=== PATIENT | male | born 1975 | race American Indian/Alaskan Native ===

== ENCOUNTER 2020-06-28 17:08 | Outpatient (CLI) | payer OTHER, SELFPAY ==
[2020-06-28 17:34] LABS: Basophils Percent Auto 0.4 % (0.2-1.2); Eosinophils Absolute Auto 0.3 K/mm3 (0-0.3); Eosinophils Percent Auto 3.8 % (0-4.4); Hematocrit 50.5 % (42.0-52.0); Hemoglobin 17.1 g/dL (14.0-18.0); Immature Granulocyte Absolute 0.02 K/mm3 (0.00-0.031); Immature Granulocyte Percent A 0.3 % (0-0.5); Lymphocytes Absolute Auto 2.17 K/mm3 (0.9-3.2); Lymphocytes Percent Auto 29.6 % (18.3-44.2); Mean Corpuscular HGB Conc 33.9 g/dl (32-36); Mean Corpuscular Hemoglobin 29.1 pg (26-34); Mean Platelet Volume 9.5 fl (7.4-10.4); Monocytes Absolute Auto 0.8 K/mm3 (0.1-0.6); Neutrophils Percent Auto 54.9 % (45.5-73.1); Platelet Count Result 271 k/mm3 (150-375); Red Blood Count 5.87 M/mm3 (4.6-6.20); Red Cell Distribution Width 14.5 % (11.5-14.5); White Blood Count 7.3 K/mm3 (4.5-10.0)
[2020-06-28 17:43] LABS: Alanine Aminotransferase 32 U/L (4-50); Albumin Level 4.5 g/dL (3.5-5.1); Alkaline Phosphatase 84 U/L (38-126); Anion Gap 5 mmol/L (8-16); Aspartate Amino Transferase 35 U/L (17-59); Bilirubin,Total 0.3 mg/dL (0.2-1.3); Blood Urea Nitrogen 13 mg/dL (9-20); Calcium 9.6 mg/dL (8.4-10.2); Carbon Dioxide 31 mmol/L (22-30); Chloride 102 mmol/L (98-107); Cholesterol 191 mg/dL (0-200); Estimated Glomerular Filt Rate > 60; Glucose 124 mg/dL (75-110); HDL Direct 48 mg/dL; Potassium 4.6 mmol/L (3.4-5.0); Sodium 138 mmol/L (137-145); Triglycerides 185 mg/dL (<150)
[2020-06-28 17:54] LABS: LDL Cholesterol Direct 114 mg/dL
== END 2020-06-28 17:09 | disposition home or self-care (01) ==
LOC: ANHLAB 17:11
PROVIDERS: PCP Internal Medicine; Visit Provider Internal Medicine
DX: I10 Essential (primary) hypertension (principal); Z13.220 Encounter for screening for lipoid disorders
CPT/HCPCS: 36415; 80053; 80061; 85025

== ENCOUNTER 2020-07-07 17:46 | Outpatient (CLI) | payer OTHER, SELFPAY ==
[2020-07-07 20:25] LABS: Hemoglobin A1C 5.6 % (<5.7)
== END 2020-07-07 17:47 | disposition home or self-care (01) ==
PROVIDERS: PCP Internal Medicine; Visit Provider Nurse Practitioner
DX: R73.9 Hyperglycemia, unspecified (principal)
CPT/HCPCS: 36415; 83036

== ENCOUNTER 2020-08-15 11:32 | Emergency (ER) | payer OTHER, SELFPAY ==
[2020-08-15 11:47] VITALS: BP 141/89; PULSE 93; RESP 20; TEMP 36.6; O2SAT 100
[2020-08-15 12:03] LABS: Basophils Percent Auto 0.3 % (0.2-1.2); Eosinophils Absolute Auto 0.1 K/mm3 (0-0.3); Hematocrit 51.7 % (42.0-52.0); Hemoglobin 17.4 g/dL (14.0-18.0); Immature Granulocyte Absolute 0.05 K/mm3 (0.00-0.031); Immature Granulocyte Percent A 0.4 % (0-0.5); Lymphocytes Absolute Auto 0.85 K/mm3 (0.9-3.2); Mean Corpuscular HGB Conc 33.7 g/dl (32-36); Mean Corpuscular Hemoglobin 28.9 pg (26-34); Mean Corpuscular Volume 85.7 fl (80-100); Mean Platelet Volume 9.7 fl (7.4-10.4); Monocytes Absolute Auto 0.8 K/mm3 (0.1-0.6); Monocytes Percent Auto 5.8 % (2.6-8.5); Neutrophils Absolute Auto 12.3 K/mm3 (1.3-6.7); Neutrophils Percent Auto 86.5 % (45.5-73.1); Platelet Count Result 294 k/mm3 (150-375); Red Blood Count 6.03 M/mm3 (4.6-6.20); Red Cell Distribution Width 14.6 % (11.5-14.5); White Blood Count 14.3 K/mm3 (4.5-10.0)
[2020-08-15 12:16] LABS: Alanine Aminotransferase 29 U/L (4-50); Albumin Level 4.9 g/dL (3.5-5.1); Alkaline Phosphatase 71 U/L (38-126); Anion Gap 13 mmol/L (8-16); Aspartate Amino Transferase 34 U/L (17-59); Bilirubin,Total 0.8 mg/dL (0.2-1.3); Blood Urea Nitrogen 14 mg/dL (9-20); Calcium 9.7 mg/dL (8.4-10.2); Carbon Dioxide 22 mmol/L (22-30); Chloride 102 mmol/L (98-107); Estimated CRCL calculation 104 ml/min; Estimated Glomerular Filt Rate > 60; Glucose 160 mg/dL (75-110); Lipase 84 U/L (23-300); Potassium 4.3 mmol/L (3.4-5.0); Sodium 137 mmol/L (137-145)
--- NOTE | 2020-08-15 13:53 | PC.NURSE ---
pt does not want to wait any longer despite being next for room. leaving at this time prior to being called back to exam room. pt was seen by nurse in triage. iv saline lock d/c intact and dry drsg applied.
== END 2020-08-16 03:52 | disposition left against medical advice (07) ==
PROVIDERS: Emergency Provider Emergency Medicine; PCP Internal Medicine
DX: R11.2 Nausea with vomiting, unspecified (principal)
CPT/HCPCS: 36415; 80053; 83690; 85025; 99199

== ENCOUNTER 2021-09-15 15:59 | Outpatient (CLI) | payer OTHER, SELFPAY ==
[2021-09-15 19:09] LABS: Basophils Percent Auto 0.4 % (0.2-1.2); Eosinophils Absolute Auto 0.5 K/mm3 (0-0.3); Eosinophils Percent Auto 6.2 % (0-4.4); Hematocrit 47.1 % (42.0-52.0); Hemoglobin 15.6 g/dL (14.0-18.0); Immature Granulocyte Absolute 0.02 K/mm3 (0.00-0.031); Immature Granulocyte Percent A 0.2 % (0-0.5); Lymphocytes Absolute Auto 2.55 K/mm3 (0.9-3.2); Lymphocytes Percent Auto 31.7 % (18.3-44.2); Mean Corpuscular HGB Conc 33.1 g/dl (32-36); Mean Corpuscular Hemoglobin 28.8 pg (26-34); Mean Corpuscular Volume 86.9 fl (80-100); Mean Platelet Volume 9.9 fl (7.4-10.4); Monocytes Absolute Auto 0.8 K/mm3 (0.1-0.6); Monocytes Percent Auto 9.6 % (2.6-8.5); Neutrophils Absolute Auto 4.2 K/mm3 (1.3-6.7); Neutrophils Percent Auto 51.9 % (45.5-73.1); Platelet Count Result 286 k/mm3 (150-375); Red Blood Count 5.42 M/mm3 (4.6-6.20); Red Cell Distribution Width 15.2 % (11.5-14.5); White Blood Count 8.1 K/mm3 (4.5-10.0)
[2021-09-15 20:39] LABS: Alanine Aminotransferase 20 U/L (6-50); Albumin Level 4.3 g/dL (3.5-5.1); Alkaline Phosphatase 81 U/L (38-126); Anion Gap 5 mmol/L (8-16); Aspartate Amino Transferase 33 U/L (17-59); Bilirubin,Total 0.3 mg/dL (0.2-1.3); Blood Urea Nitrogen 17 mg/dL (9-20); Calcium 9.2 mg/dL (8.4-10.2); Carbon Dioxide 27 mmol/L (22-30); Chloride 104 mmol/L (98-107); Cholesterol 194 mg/dL (0-200); Estimated Glomerular Filt Rate > 60; Glucose 115 mg/dL (65-110); HDL Direct 36 mg/dL; Potassium 4.2 mmol/L (3.4-5.0); Sodium 136 mmol/L (137-145); Triglycerides 213 mg/dL (<150)
[2021-09-15 20:52] LABS: LDL Cholesterol Direct 110 mg/dL
[2021-09-15 20:55] LABS: Hemoglobin A1C 5.4 % (<5.7)
[2021-09-15 21:08] LABS: Thyroid Stimulating Hormone 0.586 uIU/mL (0.465-4.680)
== END 2021-09-15 16:00 | disposition home or self-care (01) ==
LOC: ANHGOSHLAB 16:00
PROVIDERS: PCP Internal Medicine; Visit Provider Nurse Practitioner
DX: F41.8 Other specified anxiety disorders (principal); Z13.220 Encounter for screening for lipoid disorders; I10 Essential (primary) hypertension
CPT/HCPCS: 36415; 80053; 80061; 83036; 84443; 85025

== ENCOUNTER 2021-10-14 17:13 | Emergency (ER) | payer OTHER, SELFPAY ==
--- NOTE | 2021-10-14 17:23 | ED.DENTAL ---
HPI - Dental/Oral General Chief complaint: Dental/Oral Stated complaint: toothache Time Seen by Provider: 10/14/21 17:28 Source: patient Mode of arrival: ambulatory Limitations: no limitations History of Present Illness HPI Narrative: 44-year-old male presents with concern for left upper dental pain. He reports he has had ongoing issues with this tooth. He reports he has consulted a dentist and needs either a root canal or the tooth pulled which he says he cannot afford. He reports 3-day history of pain. He denies any rfcd-tat-pcnsked intervention. He denies fever, difficulty swallowing, jaw swelling. MD Complaint: tooth pain Related Data Allergies Allergy/AdvReac Type Severity Reaction Status Date / Time oseltamivir Allergy Severe Vomiting Verified 09/06/21 14:44 Penicillins Allergy Severe Anaphylaxis Verified 09/06/21 14:44 vancomycin Allergy Unknown Unknown Verified 09/06/21 14:44 OSELTAMIVIR PHOSPHATE AdvReac Intermediate VOMITING Uncoded 09/06/21 14:44 Review of Systems Review of Systems: CONSTITUTIONAL: Denies malaise, chills, sweats, or fever. EYES: Denies visual changes ENT: Denies rhinorrhea, congestion, sinus pain, otalgia or sore throat. Reports left upper dental pain CARDIOVASCULAR: Denies chest pain, palpitations RESPIRATORY: Denies cough or dyspnea. SKIN: Denies rash or itching. MUSCULOSKELETAL: Denies myalgia. NEUROLOGIC: Denies numbness, weakness, or headache. All systems reviewed & are unremarkable except as noted in HPI and below PMFSH Past Medical History Medical History (Updated 10/14/21 @ 17:33 by Louann Noguera NP) Depression with anxiety Hypertension Family History Family History Father Family history of diabetes mellitus in first degree relative Diabetes mellitus Other Colon polyp Social History Social History (Updated 09/06/21 @ 14:49 by Regina Tucker CMA) Smoking status: Never smoker Alcohol intake: current Gender identity (if verbalized by the patient): Male Comments At time of signature, agree with nursing past medical, surgical, social and family history. There is no relevant family history pertinent to the presenting complaint Exam Narrative: GENERAL: Well-appearing, well-nourished, and in no acute distress. HEAD: Normocephalic, atraumatic. EYES: PERRLA, sclera clear ENT: Nares clear, turbinates pink, no rhinorrhea or epistaxis. Mucous membranes moist. TM pearly muniz with sharp light reflex bilaterally; no tragal tenderness. Oropharynx without erythema or lesions. Tonsils not enlarged and without exudate. Tooth #14 broken with decay, no periapical or other abscess visible or palpable, no jaw NECK: Supple. No lymphadenopathy. CHEST: No respiratory distress. Speaks in full sentences. HEART: Regular rate and rhythm. SKIN: Warm, dry, no visible rash. NEURO: Alert and oriented x3. PSYCH: Normal mood and affect Course Course Emergency Course: Patient is aware of diagnosis, understands and agrees to treatment plan. Anticipatory guidance given. Patient agrees to follow-up as directed and is aware of reasons to seek care at the emergency department. Portions of this record may have been created with voice recognition software Level of Care: Express Care Visit Vital Signs Vital signs: Reviewed. MDM - Dental/Oral MDM Narrative Medical decision making narrative: Patients pain and complaint coupled with physical findings are consistant with dentalgia. There are no focal signs of space occupying lesions that are compromising to the airway; no dysphagia, odynophagia, dysphonia, or dyspnea. No uvular deviation or soft palate edema. Patient is non-toxic appearing. The floor of the mouth is soft with no signs of Bryce's Angina; no induration below mandible, no neck pain. Patient is without trismus or drooling and able to swallow secretions. Patient is felt appropriate for discharge home with dental follow up
[2021-10-14 17:27] VITALS: BP 128/97; PULSE 78; RESP 16; TEMP 36.8; O2SAT 100
== END 2021-10-14 17:41 | disposition home or self-care (01) ==
PROVIDERS: Emergency Provider Nurse Practitioner; PCP Internal Medicine
DX: K08.89 Other specified disorders of teeth and supporting structures (principal); I10 Essential (primary) hypertension
CPT/HCPCS: 99213; G0463

== ENCOUNTER 2022-06-13 15:59 | Outpatient (CLI) | payer OTHER, SELFPAY ==
[2022-06-13 16:12] LABS: Hematocrit 46.1 % (42.0-52.0); Hemoglobin 15.7 g/dL (14.0-18.0); Mean Corpuscular HGB Conc 34.1 g/dl (32-36); Mean Corpuscular Hemoglobin 29.2 pg (26-34); Mean Corpuscular Volume 85.7 fl (80-100); Mean Platelet Volume 9.3 fl (7.4-10.4); Platelet Count Result 302 k/mm3 (150-375); Red Blood Count 5.38 M/mm3 (4.6-6.20); Red Cell Distribution Width 14.1 % (11.5-14.5); White Blood Count 6.8 K/mm3 (4.5-10.0)
[2022-06-13 16:25] LABS: Alanine Aminotransferase 26 U/L (6-50); Alkaline Phosphatase 70 U/L (38-126); Anion Gap 9 mmol/L (8-16); Aspartate Amino Transferase 30 U/L (17-59); Bilirubin,Total 0.6 mg/dL (0.2-1.3); Blood Urea Nitrogen 11 mg/dL (9-20); CRP 0.7 mg/dL (<1.0); Calcium 9.3 mg/dL (8.4-10.2); Carbon Dioxide 29 mmol/L (22-30); Chloride 101 mmol/L (98-107); Estimated Glomerular Filt Rate > 60; Glucose 116 mg/dL (65-110); Potassium 4.6 mmol/L (3.4-5.0); Sodium 139 mmol/L (137-145)
[2022-06-13 16:49] LABS: Erythrocyte Sedimentation Rate 7 mm/hr (0-20)
[2022-06-13 18:15] LABS: Thyroid Stimulating Hormone Reflex 0.331 uIU/mL (0.465-4.68)
[2022-06-13 19:14] LABS: Free T4 Free Thyroxine Reflex 0.96 ng/dL (0.78-2.19)
[2022-06-13 19:56] LABS: Total Triiodothyronine (T3) 1.44 NG/ML (0.97-1.69)
[2022-06-18 17:37] LABS: Gliadin AB, IgG <1.0 U/mL (<15.0); TTG IGA AB <1.0 U/mL (<15.0)
== END 2022-06-13 16:00 | disposition home or self-care (01) ==
LOC: ANHLAB 16:00
PROVIDERS: PCP Internal Medicine; Visit Provider Nurse Practitioner
DX: R10.11 Right upper quadrant pain (principal); R63.4 Abnormal weight loss; K58.9 Irritable bowel syndrome, unspecified
CPT/HCPCS: 36415; 80053; 84439; 84443; 84480; 85027; 85652; 86140; 86255; 86364

== ENCOUNTER 2022-06-27 09:49 | Outpatient (CLI) | payer OTHER, SELFPAY ==
--- NOTE | ~2022-06-27 | US_ITS ---
Limited Abdominal Sonogram: Real-time sonographic imaging of the right upper quadrant was performed. Clinical History: Abdominal pain Findings: The liver appears normal with no evidence of mass lesion or bile duct dilatation. Main por luis a vein demonstrates normal direction of flow. The gallbladder is well distended, and appears normal with no evidence of gallstone or wall thickening. The common bile duct measures 4 mm. The visualize d pancreas, aorta, and IVC are obscured by bowel gas shadowing. Impression: No significant abnormality seen. Reviewed, dictated and finalized at location M. Impression: No significant abnormality seen.
== END 2022-06-27 09:50 | disposition home or self-care (01) ==
LOC: ANHIMG 09:50
PROVIDERS: PCP Internal Medicine; Visit Provider Nurse Practitioner
DX: R10.11 Right upper quadrant pain (principal)
CPT/HCPCS: 76705

== ENCOUNTER 2022-07-04 15:12 | Outpatient (CLI) | payer OTHER, SELFPAY ==
[2022-07-04 21:24] LABS: Free T4 Free Thyroxine 1.03 ng/mL (0.78-2.19)
[2022-07-04 21:59] LABS: Thyroid Stimulating Hormone 0.358 uIU/mL (0.465-4.680)
== END 2022-07-04 15:13 | disposition home or self-care (01) ==
LOC: ANHGOSHLAB 15:15
PROVIDERS: PCP Internal Medicine; Visit Provider Nurse Practitioner
DX: E05.90 Thyrotoxicosis, unspecified without thyrotoxic crisis or storm (principal)
CPT/HCPCS: 36415; 84439; 84443

== ENCOUNTER 2022-12-19 16:45 | Emergency (ER) | payer OTHER, SELFPAY ==
[2022-12-19 16:51] VITALS: BP 125/79; PULSE 76; RESP 16; TEMP 36.3; O2SAT 100
--- NOTE | 2022-12-19 17:18 | ED.DENTAL ---
HPI - Dental/Oral General Chief complaint: Dental/Oral Stated complaint: Tooth Pain Source: patient and RN notes reviewed History of Present Illness HPI Narrative: 47 yo M presents to urgent care with complaints of left upper dental pain x 2 days. Pt states he has had a hx of a bad tooth in this area. Pt reports the feeling of swelling in his face. Denies any fevers, chills, vomiting, chest pain, or SOB. Related Data Home Medications Medication Instructions Recorded Confirmed dicyclomine 20 mg tablet See Rx Instructions .Route 10/17/22 12/19/22 .COMPLEX PRN abd cramping citalopram 40 mg tablet 40 mg PO QPM 12/07/22 12/19/22 lisinopril 30 mg tablet 30 mg PO QPM 12/07/22 12/19/22 metoprolol succinate 100 mg 100 mg PO QPM 12/07/22 12/19/22 tablet,extended release 24 hr omeprazole 40 mg capsule,delayed 40 mg PO QPM 12/07/22 12/19/22 release Allergies Allergy/AdvReac Type Severity Reaction Status Date / Time oseltamivir Allergy Severe Vomiting Verified 12/19/22 16:58 Penicillins Allergy Severe Anaphylaxis Verified 12/19/22 16:58 vancomycin Allergy Unknown Unknown Verified 12/19/22 16:58 Review of Systems Review of Systems: CONSTITUTIONAL: Denies fever, chills, or sweats. EYES: Denies visual changes, redness, or discharge. ENT: Denies otalgia and sore throat. left upper dental pain CARDIOVASCULAR: Denies chest pain, palpitations, or edema. RESPIRATORY: Denies cough or dyspnea. GASTROINTESTINAL: Denies abdominal pain, nausea, vomiting, or diarrhea. GENITOURINARY: Denies dysuria or hematuria. SKIN: Denies rash or itching. MUSCULOSKELETAL: Denies back pain, joint pain, or myalgia. NEUROLOGIC: Denies headache, numbness, or weakness. Pertinent positives per HPI. PMFSH Past Medical History Medical History Abnormal weight loss Depression with anxiety History of peptic ulcer disease Hx of ulcerative colitis Hypertension Hyperthyroidism IBS (irritable bowel syndrome) Insomnia Long-term current use of testosterone replacement therapy Obesity RUQ abdominal pain Ulcerative colitis Family History Family History Father Family history of diabetes mellitus in first degree relative Diabetes mellitus Other Colon polyp Social History Social History Smoking status: Never smoker Alcohol intake: never Substance use: current Substance use type: marijuana Last use: HS Lack of Transportation: No Lack of Food: Never True Current Housing: I Do Not Have Housing Concerned About Future Housing: YES Difficulty Paying Gas/Electric Bills: YES Difficulty Paying for Meds: YES Currently Unemployed: No Education: High School Diploma/GED Difficulty w/ Childcare or Family Care: No Living arrangements: with family Gender identity (if verbalized by the patient): Male Spiritual care concerns: No Comments At the time of my signature, I reviewed and agree with the nursing past medical, surgical, social, and family history. There is no relevant family history pertinent to the patient complaint. Exam Narrative: GENERAL: This is a well-nourished, well-developed patient, in no apparent distress. HEAD: normocephalic, atraumatic. EYES: Sclera clear/white. Vision is grossly intact. EARS: External ears normal, auditory canals clear and without drainage, TMs normal without perforation. Hearing grossly intact. NOSE: External nose normal with no obvious nasal discharge, nares without redness, no rhinorrhea. THROAT: Mucous membranes moist, posterior pharynx clear. NECK: Neck supple, non-tender without lymphadenopathy, masses or thyromegaly. CARDIOVASCULAR: Regular rate and rhythm without murmurs, gallops, or rubs. RESPIRATORY: Clear to auscultation. Breath sounds equal bilaterally. No wheezes, rales, or rhonchi. GASTROINTESTINAL: Abdo
== END 2022-12-19 17:20 | disposition home or self-care (01) ==
PROVIDERS: Emergency Provider Nurse Practitioner Family; PCP Internal Medicine
DX: K04.7 Periapical abscess without sinus (principal); I10 Essential (primary) hypertension; E05.90 Thyrotoxicosis, unspecified without thyrotoxic crisis or storm; E66.9 Obesity, unspecified; Z68.30 Body mass index [BMI] 30.0-30.9, adult; F41.8 Other specified anxiety disorders
CPT/HCPCS: 99213; G0463

== ENCOUNTER 2023-02-12 17:54 | Emergency (ER) | payer MEDICAID, SELFPAY ==
--- NOTE | ~2023-02-12 | CT_ITS ---
EXAMINATION: CT abdomen pelvis w con DATE: 02/12/2023 20:31 INDICATION: Abdominal pain radiating to the back and down the legs. TECHNIQUE: Computed tomography (CT) of the abdomen and pelvis was performed with 100 mL Omnipaque 350 intravenous contrast. Automated exposure control and iterative reconstruction technique were employe d. The dose-length product was 1331.00 mGy-cm. COMPARISON: CT abdomen and pelvis 05/07/2012 FINDINGS: The visualized portions of the lung bases demonstrate minimal atelectasis. No pleural effus ion. The heart size is normal. No pericardial effusion. The liver, spleen, gallbladder, pancreas, adr enal glands, and kidneys are normal. There are no dilated loops of bowel. The appendix are normal. Th ere are no pathologically enlarged lymph nodes. There is no free intraperitoneal fluid. There is mild thoracic and lumbar spondylosis. IMPRESSION: 1. No etiology for the patient's symptoms. Reviewed, dictated and finalized at location E. ARCHITECT
--- NOTE | ~2023-02-12 | XR_ITS ---
EXAMINATION: XR lumbar spine 2-3V DATE: 02/12/2023 18:55 INDICATION: Low back pain. Bilateral sciatica. TECHNIQUE: 3 views of lumbar spine were obtained. COMPARISON: CT abdomen and pelvis 05/07/2012 FINDINGS: There is 4 degrees dextrocurvature of lumbar spine. Vertebral body heights are normal. Ther e is mildly decreased disc height at L4-L5 and L5-S1. There are endplate osteophytes at most levels. There is multilevel mild facet joint osteoarthritis. IMPRESSION: 1. Mild lumbar spondylosis. Reviewed, dictated and finalized at location E. 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 Mild lumbar spondylosis.
[2023-02-12 17:57] VITALS: BP 142/98; PULSE 71; RESP 20; TEMP 36.4; O2SAT 100
--- NOTE | 2023-02-12 18:22 | ED.ABDPAIN ---
HPI - Abdominal Pain General Chief Complaint: Abdominal Pain <Scott Nolasco APRN - Last Filed: 02/12/23 18:42> Stated Complaint: colon issues <Scott Nolasco APRN - Last Filed: 02/12/23 18:42> Time Seen by Provider: 02/12/23 18:36 <Scott Nolasco APRN - Last Filed: 02/12/23 18:42> Source: patient <Scott Nolasco APRN - Last Filed: 02/12/23 18:42> Mode of arrival: ambulatory <Scott Nolasco APRN - Last Filed: 02/12/23 18:42> Limitations: no limitations <Scott Nolasco APRN - Last Filed: 02/12/23 18:42> History of Present Illness HPI narrative: Fidel is a 47-year-old male patient presenting to the ER today with complaints of possible colon issues. He reports he is having some lower abdominal discomfort but more pain is worse and his lower back. Back pain started yesterday. States he feels weak going up the stairs and pain is radiating down his bilateral lower extremities. Denies any known injury. History of ulcerative colitis, GERD, and IBS. Denies any fever or chills. Last bowel movement was today and yellow-denied any blood or mucus in his stool. Has been trying to coordinate getting a colonoscopy at the end of this week with his GI doctor. Denies any urinary symptoms, nausea, or vomiting. <Scott Nolasco APRN - Last Filed: 02/12/23 18:42> Related Data Home Medications: Home Medications Medication Instructions Recorded Confirmed dicyclomine 20 mg tablet See Rx Instructions .Route 10/17/22 01/02/23 .COMPLEX PRN abd cramping citalopram 40 mg tablet 40 mg PO QPM 12/07/22 01/02/23 lisinopril 30 mg tablet 30 mg PO QPM 12/07/22 01/02/23 metoprolol succinate 100 mg 100 mg PO QPM 12/07/22 01/02/23 tablet,extended release 24 hr <Scott Nolasco APRN - Last Filed: 02/12/23 18:42> Allergies/Adverse Reactions: Allergies Allergy/AdvReac Type Severity Reaction Status Date / Time oseltamivir Allergy Severe Vomiting Verified 01/02/23 15:23 Penicillins Allergy Severe Anaphylaxis Verified 01/02/23 15:23 vancomycin Allergy Unknown Unknown Verified 01/02/23 15:23 <Scott Nolasco APRN - Last Filed: 02/12/23 18:42> Review of Systems Review of Systems: Pertinent positives per HPI. Patient denies any fever, chills, rash, headache, visual changes, dizziness, cough, runny nose, sore throat, shortness of breath, chest pain, palpitations, nausea, vomiting, diarrhea, constipation, or any urinary issues. <Scott Nolasco APRN - Last Filed: 02/12/23 18:42> [facility] Past Medical History Medical History: Medical History Abnormal weight loss Depression with anxiety History of peptic ulcer disease Hx of ulcerative colitis Hypertension Hyperthyroidism IBS (irritable bowel syndrome) Insomnia Long-term current use of testosterone replacement therapy Obesity RUQ abdominal pain Ulcerative colitis <Scott Nolasco APRN - Last Filed: 02/12/23 18:42> Family History Family History: Family History Father Family history of diabetes mellitus in first degree relative Diabetes mellitus Other Colon polyp <Scott Nolasco APRN - Last Filed: 02/12/23 18:42> Social History Social History: Social History Smoking status: Never smoker Alcohol intake: never Substance use: current Substance use type: marijuana Last use: HS Lack of Transportation: No Lack of Food: Never True Current Housing: I Do Not Have Housing Concerned About Future Housing: YES Difficulty Paying Gas/Electric Bills: YES Difficulty Paying for Meds: YES Currently Unemployed: No Education: High School Diploma/GED Difficulty w/ Childcare or Family Care: No Living arrangements: with family Gender identity (if verbalized by the patient): Male Kirill
[2023-02-12 18:55] LABS: Basophils Percent Auto 0.4 % (0.2-1.2); Eosinophils Absolute Auto 0.3 K/mm3 (0-0.3); Eosinophils Percent Auto 2.5 % (0-4.4); Hematocrit 45.3 % (42.0-52.0); Hemoglobin 15.2 g/dL (14.0-18.0); Immature Granulocyte Absolute 0.03 K/mm3 (0.00-0.031); Immature Granulocyte Percent A 0.3 % (0-0.5); Lymphocytes Absolute Auto 2.76 K/mm3 (0.9-3.2); Lymphocytes Percent Auto 28.1 % (18.3-44.2); Mean Corpuscular HGB Conc 33.6 g/dl (32-36); Mean Corpuscular Hemoglobin 28.7 pg (26-34); Mean Corpuscular Volume 85.5 fl (80-100); Mean Platelet Volume 9.6 fl (7.4-10.4); Monocytes Absolute Auto 0.9 K/mm3 (0.1-0.6); Monocytes Percent Auto 9.1 % (2.6-8.5); Neutrophils Absolute Auto 5.8 K/mm3 (1.3-6.7); Neutrophils Percent Auto 59.6 % (45.5-73.1); Platelet Count Result 297 k/mm3 (150-375); Red Cell Distribution Width 14.2 % (11.5-14.5); White Blood Count 9.8 K/mm3 (4.5-10.0)
[2023-02-12 19:05] LABS: Alanine Aminotransferase 18 U/L (6-50); Albumin Level 4.6 g/dL (3.5-5.1); Alkaline Phosphatase 82 U/L (38-126); Anion Gap 8 mmol/L (8-16); Aspartate Amino Transferase 25 U/L (17-59); Bilirubin,Total 0.7 mg/dL (0.2-1.3); Blood Urea Nitrogen 10 mg/dL (9-20); Calcium 9.3 mg/dL (8.4-10.2); Carbon Dioxide 29 mmol/L (22-30); Chloride 103 mmol/L (98-107); Estimated CRCL calculation 125 ml/min; Estimated Glomerular Filt Rate > 60; Glucose 108 mg/dL (65-110); Lipase 184 U/L (23-300); Potassium 4.2 mmol/L (3.4-5.0); Sodium 140 mmol/L (137-145)
[2023-02-12 20:05] LABS: Appearance Urine Clear (Clear); Bilirubin Urine Negative (Negative); Blood Urine Negative (Negative); Color Urine Yellow (Yellow); Glucose Urine UA Negative (Negative); Ketones Urine Negative (Negative); Leukocyte Esterase Ur Negative LEU/UL (Negative); Nitrate Urine Negative (Negative); Protein Urine Negative (Negative); Specific Grav Ur 1.016 (1.001-1.035); Urobilinogen Urine 0.2 mg/dL (<2.0)
[2023-02-12 20:12] LABS: Add Urine Microscopic? NO
[2023-02-12] MEDS: SODIUM CHLORIDE 0.9% IV 1,000 ML 999 ML IV CONT (20:31)
[2023-02-12] MEDS: methylPREDNISolone SOD SUCC 125 MG VIAL IV PUSH (20:32)
[2023-02-12] MEDS: KETOROLAC 30 MG/ML VIAL (*BKC) IV PUSH (20:34)
[2023-02-12] MEDS: ORPHENADRINE CITRATE 100 MG TABLET.ER PO (20:35)
[2023-02-12 20:37] VITALS: BP 132/90; PULSE 70; RESP 16; O2SAT 100
[2023-02-12 21:37] VITALS: BP 120/82; PULSE 67; RESP 20; O2SAT 100
== END 2023-02-12 21:48 | disposition home or self-care (01) ==
PROVIDERS: Nurse Practitioner Family; Emergency Provider Emergency Medicine; PCP Internal Medicine
DX: M54.42 Lumbago with sciatica, left side (principal); M54.41 Lumbago with sciatica, right side; R10.30 Lower abdominal pain, unspecified; F32.A Depression, unspecified; F41.9 Anxiety disorder, unspecified; I10 Essential (primary) hypertension
CPT/HCPCS: 36415; 72100; 74177; 80053; 81003; 83690; 85025; 96361; 96374; 96375; 99284; A9270; J1885; J2930; J7030; Q9967

== ENCOUNTER 2023-03-01 00:22 | Day surgery (SDC) | payer OTHER, SELFPAY ==
[2022-08-27 15:35] VITALS: BMI 35.0
[2022-10-02 15:21] VITALS: BMI 35.0
--- NOTE | 2022-10-02 15:22 | PC.NURSE ---
10/02/22 No changes to health history per patient
[2022-10-17 14:06] VITALS: BMI 35.0
[2022-12-07 15:53] VITALS: BMI 35.0
[2022-12-26 15:58] VITALS: BMI 35.0
--- NOTE | 2023-01-01 10:30 | SUR.PREOP ---
Patient called regarding upcoming procedure. Message left on patient's voicemail regarding preop instructions, appointment times, and procedure prep.
--- NOTE | 2023-01-02 15:23 | PC.NURSE ---
PAT call completed on 12/26/22. Has since rescheduled to 01/22/23 at 1130/1300. Pt states no changes to health history or medications since then. Aware of new date and time. No further questions.
--- NOTE | 2023-01-21 09:17 | SUR.PREOP ---
Patient called regarding upcoming procedure. Message left on patient's voicemail regarding preop instructions, appointment times, and procedure prep.
[2023-02-13 14:57] VITALS: BMI 35.0
--- NOTE | 2023-02-28 17:44 | PM.HPGS ---
History of Present Illness History of Present Illness Consent: Risks, benefits, and alternatives have been discussed and questions answered. Patient agrees to proceed with procedure. Chief complaint: Right Upper Quad Pain, Abnormal weightloss, Narrative: Fidel Mendoza is a 47 year old male who was referred for investigation of abdominal pain he also has a remote history of ulcerative colitis. Colonoscopy completed 07/07/2012 which was normal with no colitis-ileum bx was normal (recs reviewed).? He states he has always had trouble with his stomach ever since he can remember.? He states has been having right upper quadrant abdominal pain typically worse postprandial and then will slowly take time to improve.? This pain will radiate into his right flank and states it will shoot down into his right leg.? Worse after greasy or fried foods. He also states he will notice it more so if he moves too fast. His symptoms are primarily a discomfort which is in both flanks it radiates around to the back simultaneously had symmetrically he will have good days where it is not there at all and bad days where he is uncomfortable all day. He feels that this comes on sometimes after eating the wrong thing. Rarely movement can aggravate as well. He has never had a back injury. He states he has lost 100 lb in the last year. Review of Systems Review of Systems: All systems reviewed & are unremarkable except as noted in HPI and below PMFSH Past Medical History Medical History Abnormal weight loss Depression with anxiety History of peptic ulcer disease Hx of ulcerative colitis Hypertension Hyperthyroidism IBS (irritable bowel syndrome) Insomnia Long-term current use of testosterone replacement therapy Obesity RUQ abdominal pain Ulcerative colitis Family History Family History Father Family history of diabetes mellitus in first degree relative Diabetes mellitus Other Colon polyp Social History Social History Smoking status: Never smoker Alcohol intake: never Substance use: current Substance use type: marijuana Last use: HS Lack of Transportation: No Lack of Food: Never True Current Housing: I Do Not Have Housing Concerned About Future Housing: YES Difficulty Paying Gas/Electric Bills: YES Difficulty Paying for Meds: YES Currently Unemployed: No Education: High School Diploma/GED Difficulty w/ Childcare or Family Care: No Living arrangements: with family Gender identity (if verbalized by the patient): Male Spiritual care concerns: No Meds Home Medications and Allergies Home Medications Medication Instructions Recorded Confirmed Type amitriptyline 50 mg tablet 50 mg PO .daily at bedtime #90 tabs 04/26/22 03/01/23 Rx citalopram 40 mg tablet 40 mg PO QPM 12/07/22 03/01/23 History lisinopril 30 mg tablet 30 mg PO QPM 12/07/22 03/01/23 History metoprolol succinate 100 mg 100 mg PO QPM 12/07/22 03/01/23 History tablet,extended release 24 hr cyclobenzaprine 10 mg tablet 10 mg PO TID PRN muscle spasm #21 02/12/23 03/01/23 Rx tabs diclofenac potassium 50 mg tablet 50 mg PO TID PRN pain #30 tabs 02/12/23 03/01/23 Rx prednisone 20 mg tablet 40 mg PO DAILY 5 days #10 tabs 02/12/23 03/01/23 Rx omeprazole 40 mg capsule,delayed See Rx Instructions .Route 02/13/23 03/01/23 Rx release .COMPLEX #30 caps sucralfate 1 gram tablet See Rx Instructions .Route 02/13/23 03/01/23 Rx .COMPLEX #120 tabs dicyclomine 20 mg tablet See Rx Instructions .Route 02/26/23 03/01/23 Rx .COMPLEX #90 tabs Allergies Allergy/AdvReac Type Severity Reaction Status Date / Time oseltamivir Allergy Severe Vomiting Verified 03/01/23 12:53 Penicillins Allergy Severe Anaphylaxis Verified 03/01/23 12:53 vancomycin Allergy Unknown Unknown Verified 03/01/23 12:53
[2023-03-01 12:54] VITALS: BP 138/94; PULSE 77; RESP 18; TEMP 36.3; O2SAT 100
[2023-03-01] MEDS: LACTATED RINGERS 1,000 ML 150 ML IV CONT (12:56)
--- NOTE | 2023-03-01 13:12 | WPDANESEPPF ---
Anes - Initial Pre Proc Eval Procedure: Operation Date: 03/01/23 14:00 Proposed Procedures p Esophagogastroduodenoscopy & Colonoscopy - Vaughn Bridges MD Date/Time: 03/01/23 13:12 Surgeon: Vaughn Bridges MD Pre Op Diagnosis: Right Upper Quad Pain, Abnormal weightloss, Patient Data Age: 47 Gender: M Height: 1.73 m Weight: 101.9 kg Last Vital Signs Temp 97.4 F L 03/01/23 12:54 Pulse 77 03/01/23 12:54 Resp 18 03/01/23 12:54 BP 138/94 H 03/01/23 12:54 Pulse Ox 100 03/01/23 12:54 O2 Del Method Room Air 03/01/23 12:54 Allergies Allergy/AdvReac Type Severity Reaction Status Date / Time oseltamivir Allergy Severe Vomiting Verified 03/01/23 12:53 Penicillins Allergy Severe Anaphylaxis Verified 03/01/23 12:53 vancomycin Allergy Unknown Unknown Verified 03/01/23 12:53 Home Medications Medication Instructions Recorded Confirmed Type amitriptyline 50 mg tablet 50 mg PO .daily at bedtime #90 tabs 04/26/22 03/01/23 Rx citalopram 40 mg tablet 40 mg PO QPM 12/07/22 03/01/23 History lisinopril 30 mg tablet 30 mg PO QPM 12/07/22 03/01/23 History metoprolol succinate 100 mg 100 mg PO QPM 12/07/22 03/01/23 History tablet,extended release 24 hr cyclobenzaprine 10 mg tablet 10 mg PO TID PRN muscle spasm #21 02/12/23 03/01/23 Rx tabs diclofenac potassium 50 mg tablet 50 mg PO TID PRN pain #30 tabs 02/12/23 03/01/23 Rx prednisone 20 mg tablet 40 mg PO DAILY 5 days #10 tabs 02/12/23 03/01/23 Rx omeprazole 40 mg capsule,delayed See Rx Instructions .Route 02/13/23 03/01/23 Rx release .COMPLEX #30 caps sucralfate 1 gram tablet See Rx Instructions .Route 02/13/23 03/01/23 Rx .COMPLEX #120 tabs dicyclomine 20 mg tablet See Rx Instructions .Route 02/26/23 03/01/23 Rx .COMPLEX #90 tabs Patient hx anesthesia problems: none Family hx anesthesia problems: none Results Review: All pre-operative results and documents have been reviewed as part of the pre-operative evaluation. [facility] Past Medical History Medical History Abnormal weight loss Depression with anxiety History of peptic ulcer disease Hx of ulcerative colitis Hypertension Hyperthyroidism IBS (irritable bowel syndrome) Insomnia Long-term current use of testosterone replacement therapy Obesity RUQ abdominal pain Ulcerative colitis Family History Family History Father Family history of diabetes mellitus in first degree relative Diabetes mellitus Other Colon polyp Social History Social History Smoking status: Never smoker Alcohol intake: never Substance use: current Substance use type: marijuana Last use: HS Lack of Transportation: No Lack of Food: Never True Current Housing: I Do Not Have Housing Concerned About Future Housing: YES Difficulty Paying Gas/Electric Bills: YES Difficulty Paying for Meds: YES Currently Unemployed: No Education: High School Diploma/GED Difficulty w/ Childcare or Family Care: No Living arrangements: with family Gender identity (if verbalized by the patient): Male Spiritual care concerns: No Anes - Eval Final PreProcedure Day of Procedure 03/01/23 13:12 Patient weight: obese Heart: regular rate and rhythm Lungs: clear to auscultation Airway: Mallampati scale class II Neurological: alert and oriented Last oral intake: >/= 8 hours ASA classification: II Emergent: no Anesthetic plan: proceed Anesthesia type and monitoring: general GIVS and standard monitoring Results Review: All pre-operative results and documents have been reviewed as part of the pre-operative evaluation. Informed Consent: The patient's anesthetic plan and its attendant risks and benefits were discussed with the patient/family/POA. Questions were solicited and answers provided to the satisfaction of the p
[2023-03-01] MEDS: ONDANSETRON INJ 4 MG/2 ML VIAL IV PUSH (13:15)
--- NOTE | 2023-03-01 14:05 | SUR.OPER ---
EGD: [id number] COLON: Start 1405
[2023-03-01 14:17] VITALS: BP 114/65; PULSE 68; RESP 21; O2SAT 100
[2023-03-01 14:27] VITALS: BP 120/68; PULSE 67; RESP 20; O2SAT 100
[2023-03-01 14:37] VITALS: BP 117/78; PULSE 64; RESP 21; O2SAT 100
== END 2023-03-01 14:48 | disposition home or self-care (01) ==
PROVIDERS: PCP Internal Medicine; Visit Provider Internal Medicine Gastroenterology
PROC: 0DJ08ZZ Inspection of Upper Intestinal Tract, Via Natural or Artificial Opening Endoscopic (ICD-10-PCS; CPT 43235; principal; 2023-03-01 14:00)
DX: K31.89 Other diseases of stomach and duodenum (principal); K21.9 Gastro-esophageal reflux disease without esophagitis; K64.8 Other hemorrhoids; F41.8 Other specified anxiety disorders; I10 Essential (primary) hypertension; E03.9 Hypothyroidism, unspecified; K58.9 Irritable bowel syndrome, unspecified; G47.00 Insomnia, unspecified; R63.4 Abnormal weight loss; F12.90 Cannabis use, unspecified, uncomplicated; E66.9 Obesity, unspecified; Z68.34 Body mass index [BMI] 34.0-34.9, adult
CPT/HCPCS: 43239; 45380; 88305; J2001; J2405; J2704; J7120

== ENCOUNTER 2023-03-25 17:46 | Emergency (ER) | payer OTHER, SELFPAY ==
[2023-03-25 17:51] VITALS: BP 135/91; PULSE 79; RESP 20; TEMP 36.4; O2SAT 99
--- NOTE | 2023-03-25 17:52 | ED.GENADULT ---
HPI - General Adult General Chief complaint: Upper Respiratory Infection Stated complaint: Flu symptoms Source: patient, RN notes reviewed and old records reviewed Mode of arrival: ambulatory Limitations: no limitations History of Present Illness HPI narrative: 47-year-old male presents to [facility] with complaints of cough, congestion, fevers, myalgia this started last . Patient states believes he has the flu. Patient states entire household is sick. Patient states fever has resolved but continues to have cough and chest congestion. MD complaint: Cough, congestion, fever Onset (ago): day(s) (4) Related Data Home Medications Medication Instructions Recorded Confirmed citalopram 40 mg tablet 40 mg PO QPM 12/07/22 03/25/23 lisinopril 30 mg tablet 30 mg PO QPM 12/07/22 03/25/23 metoprolol succinate 100 mg 100 mg PO QPM 12/07/22 03/25/23 tablet,extended release 24 hr Allergies Allergy/AdvReac Type Severity Reaction Status Date / Time oseltamivir Allergy Severe Vomiting Verified 03/01/23 12:53 Penicillins Allergy Severe Anaphylaxis Verified 03/01/23 12:53 vancomycin Allergy Unknown Unknown Verified 03/01/23 12:53 Review of Systems Constitutional: Constitutional: Reports no additional constitutional complaints, Reports body ache(s), Denies chills, Reports fatigue, Reports fever(s) and Denies headache(s) Eyes: Eyes: Reports no additional eye complaints and Denies blurry vision ENT: Reports system reviewed and no additional complaints, except as documented, Denies vertigo, Denies dizziness, Denies ear discharge, Denies otalgia, Denies facial pain, Denies headache(s), Reports nasal congestion, Denies nasal discharge, Denies sinus pain, Reports sinus pressure and Denies sore throat Cardiovascular: Cardiovascular: Reports no additional cardiovascular complaints, Denies chest pain, Denies chest pain at rest, Denies rapid heart rate and Denies dyspnea Respiratory: Respiratory: Reports no additional respiratory complaints, Reports chest congestion, Reports cough, Denies pain on inspiration, Denies pain with cough and Denies dyspnea Gastrointestinal: Gastrointestinal: Denies abdominal pain, Denies diarrhea, Denies nausea and Denies vomiting Integumentary/Breasts: Skin/Breast: Denies rash Neurologic: Reports system reviewed and no additional complaints, except as documented, Denies vertigo, Denies dizziness and Denies headache(s) Endocrine: Endocrine: Denies fatigue [facility] Past Medical History Medical History Abnormal weight loss Depression with anxiety History of peptic ulcer disease Hx of ulcerative colitis Hypertension Hyperthyroidism IBS (irritable bowel syndrome) Insomnia Long-term current use of testosterone replacement therapy Obesity RUQ abdominal pain Ulcerative colitis Family History Family History Father Family history of diabetes mellitus in first degree relative Diabetes mellitus Other Colon polyp Social History Social History Smoking status: Never smoker Alcohol intake: never Substance use: current Substance use type: marijuana Last use: HS Lack of Transportation: No Lack of Food: Never True Current Housing: I Do Not Have Housing Concerned About Future Housing: YES Difficulty Paying Gas/Electric Bills: YES Difficulty Paying for Meds: YES Currently Unemployed: No Education: High School Diploma/GED Difficulty w/ Childcare or Family Care: No Living arrangements: with family Gender identity (if verbalized by the patient): Male Spiritual care concerns: No Comments At the time of my signature, I reviewed and agree with the nursing past medical, surgical, social, and family history. There is no relevant family history pertinent to the patient complaint. Exam Const: General: coopera
== END 2023-03-25 18:20 | disposition home or self-care (01) ==
PROVIDERS: Emergency Provider Registered Nurse; PCP Internal Medicine
DX: J06.9 Acute upper respiratory infection, unspecified (principal); Z20.822 Contact with and (suspected) exposure to COVID-19; I10 Essential (primary) hypertension; E05.90 Thyrotoxicosis, unspecified without thyrotoxic crisis or storm; E66.9 Obesity, unspecified; Z68.30 Body mass index [BMI] 30.0-30.9, adult; F41.8 Other specified anxiety disorders; F12.90 Cannabis use, unspecified, uncomplicated
CPT/HCPCS: 87426; 87804; 99213; G0463

== ENCOUNTER 2023-04-01 19:38 | Emergency (ER) | payer OTHER, SELFPAY ==
[2023-04-01 19:46] VITALS: BP 137/100; PULSE 76; RESP 16; TEMP 36.9; O2SAT 100
--- NOTE | 2023-04-01 20:23 | ED.URI ---
HPI - URI/Sore Throat General Chief Complaint: Upper Respiratory Infection Stated Complaint: Chest Congestion Time Seen by Provider: 04/01/23 20:13 Source: patient, RN notes reviewed and old records reviewed Mode of arrival: ambulatory Limitations: no limitations History of Present Illness HPI Narrative: Patient presents today complaining of a 2 week history of cough, chest congestion, shortness of breath. Also reports fever up to 100 last night. He has tried Mucinex and Tylenol without much relief. No history of asthma. He is a nonsmoker. Patient was seen here at [facility] on 03/25/2023 and diagnosed with a viral URI. Related Data Home Medications Medication Instructions Recorded Confirmed citalopram 40 mg tablet 40 mg PO QPM 12/07/22 03/25/23 lisinopril 30 mg tablet 30 mg PO QPM 12/07/22 03/25/23 metoprolol succinate 100 mg 100 mg PO QPM 12/07/22 03/25/23 tablet,extended release 24 hr Allergies Allergy/AdvReac Type Severity Reaction Status Date / Time oseltamivir Allergy Severe Vomiting Verified 03/01/23 12:53 Penicillins Allergy Severe Anaphylaxis Verified 03/01/23 12:53 vancomycin Allergy Unknown Unknown Verified 03/01/23 12:53 Review of Systems Review of Systems: CONSTITUTIONAL: Denies body aches, chills, or sweats.+ fever EYES: Denies visual changes, redness, or discharge. ENT: Denies rhinorrhea, sore throat, or otalgia.+ congestion CARDIOVASCULAR: Denies chest pain, palpitations, or edema. RESPIRATORY: + cough, chest congestion, shortness of breath GASTROINTESTINAL: Denies abdominal pain, nausea, vomiting, or diarrhea. GENITOURINARY: Denies dysuria or hematuria. SKIN: Denies rash, itching, or wounds. MUSCULOSKELETAL: Denies back pain, joint pain, or myalgia. NEUROLOGIC: Denies headache, numbness, tingling, or weakness. PSYCH: Denies depression or anxiety. [facility] Past Medical History Medical History Abnormal weight loss Depression with anxiety History of peptic ulcer disease Hx of ulcerative colitis Hypertension Hyperthyroidism IBS (irritable bowel syndrome) Insomnia Long-term current use of testosterone replacement therapy Obesity RUQ abdominal pain Ulcerative colitis Family History Family History Father Family history of diabetes mellitus in first degree relative Diabetes mellitus Other Colon polyp Social History Social History Smoking status: Never smoker Alcohol intake: never Substance use: current Substance use type: marijuana Last use: HS Lack of Transportation: No Lack of Food: Never True Current Housing: I Do Not Have Housing Concerned About Future Housing: YES Difficulty Paying Gas/Electric Bills: YES Difficulty Paying for Meds: YES Currently Unemployed: No Education: High School Diploma/GED Difficulty w/ Childcare or Family Care: No Living arrangements: with family Gender identity (if verbalized by the patient): Male Spiritual care concerns: No Comments At time of signature, I have reviewed and agree with nursing past medical, surgical, social and family history unless otherwise noted. Please see nursing chart for further information. There is no relevant family history pertinent to the presenting complaint Exam Narrative: GENERAL: Mildly ill-appearing, well-nourished, and in no acute distress. HEAD: Normocephalic, atraumatic. EYES: EOMI. No redness or drainage. Conjunctivae normal. ENT: Mucous membranes pink and moist. Nares congested with rhinorrhea. TMs normal bilaterally. Throat normal. Uvula midline. NECK: Normal AROM. Supple. No lymphadenopathy. CHEST: No respiratory distress. Clear to auscultation. HEART: Regular rate and rhythm. No murmur appreciated. EXTREMITIES: Normal range of motion. No edema. SKIN: Warm, dry, no rash. Capillar
== END 2023-04-01 20:34 | disposition home or self-care (01) ==
PROVIDERS: Emergency Provider Nurse Practitioner; PCP Internal Medicine
DX: J40 Bronchitis, not specified as acute or chronic (principal); J01.90 Acute sinusitis, unspecified; F12.90 Cannabis use, unspecified, uncomplicated; I10 Essential (primary) hypertension; F41.9 Anxiety disorder, unspecified; F32.A Depression, unspecified
CPT/HCPCS: 99213; G0463

== ENCOUNTER 2023-05-22 16:22 | Emergency (ER) | payer OTHER, SELFPAY ==
--- NOTE | 2023-05-22 16:25 | ED.URI ---
HPI - URI/Sore Throat General Chief Complaint: Upper Respiratory Infection Stated Complaint: SINUS CONGESTION Time Seen by Provider: 05/22/23 16:25 Source: patient Mode of arrival: ambulatory Limitations: no limitations History of Present Illness HPI Narrative: Patient is a 47-year-old male who presents with 2 weeks of sinus congestion and pressure. Patient denies any fever, chills, nausea, vomiting, diarrhea, sore throat. Does report intermittent cough. Has taken [id number] medications with no relief. Related Data Home Medications Medication Instructions Recorded Confirmed citalopram 40 mg tablet 40 mg PO QPM 12/07/22 03/25/23 Allergies Allergy/AdvReac Type Severity Reaction Status Date / Time oseltamivir Allergy Severe Vomiting Verified 05/22/23 16:35 Penicillins Allergy Severe Anaphylaxis Verified 05/22/23 16:35 vancomycin Allergy Unknown Unknown Verified 05/22/23 16:35 Review of Systems Review of Systems: All systems reviewed & are unremarkable except as noted in HPI and below Constitutional: Constitutional: Denies body ache(s), Denies chills, Denies fatigue, Denies fever(s), Denies headache(s), Denies malaise and Denies weakness Eyes: Eyes: Denies blurry vision, Denies itchy eyes and Denies loss of vision ENT: Denies otalgia, Denies headache(s), Reports nasal congestion, Reports sinus pain, Reports sinus pressure and Denies sore throat Cardiovascular: Cardiovascular: Denies chest pain, Denies irregular heart rhythm and Denies dyspnea Respiratory: Respiratory: Reports cough and Denies dyspnea Gastrointestinal: Gastrointestinal: Denies abdominal pain, Denies diarrhea, Denies nausea and Denies vomiting Musculoskeletal: Musculoskeletal: Denies back pain, Denies myalgias and Denies arthralgias Integumentary/Breasts: Skin/Breast: Denies pruritus and Denies rash Neurologic: Denies headache(s), Denies loss of vision and Denies weakness Psychiatric: Psychiatric: Reports no additional psychiatric complaints Endocrine: Endocrine: Denies fatigue Allergic/Immunologic: Allergic/Immunologic: Denies itchy eyes PMF[facility] Past Medical History Medical History Abnormal weight loss Depression with anxiety History of peptic ulcer disease Hx of ulcerative colitis Hypertension Hyperthyroidism IBS (irritable bowel syndrome) Insomnia Long-term current use of testosterone replacement therapy Obesity RUQ abdominal pain Ulcerative colitis Family History Family History Father Family history of diabetes mellitus in first degree relative Diabetes mellitus Other Colon polyp Social History Social History Smoking status: Never smoker Alcohol intake: never Substance use: current Substance use type: marijuana Last use: HS Lack of Transportation: No Lack of Food: Never True Current Housing: I Do Not Have Housing Concerned About Future Housing: YES Difficulty Paying Gas/Electric Bills: YES Difficulty Paying for Meds: YES Currently Unemployed: No Education: High School Diploma/GED Difficulty w/ Childcare or Family Care: No Living arrangements: with family Gender identity (if verbalized by the patient): Male Spiritual care concerns: No Comments At time of signature, agree with nursing past medical, surgical, social and family history. There is no relevant family history pertinent to the presenting complaint. Exam Const: General: cooperative, healthy appearing, comfortable, no acute distress and well nourished Nutritional Appearance: well nourished Orientation/consciousness: patient oriented x3 Limitations: no limitations HENMT: Head: normal to inspection, normocephalic and atraumatic Ears: hearing grossly normal bilaterally, external ears normal, TM's normal bilaterally, EAC's normal and no periauricular adenopat
[2023-05-22 16:31] VITALS: BP 116/86; PULSE 78; RESP 15; TEMP 36.5; O2SAT 100
== END 2023-05-22 16:44 | disposition home or self-care (01) ==
PROVIDERS: Emergency Provider Nurse Practitioner Family; PCP Internal Medicine
DX: J01.40 Acute pansinusitis, unspecified (principal); I10 Essential (primary) hypertension; E21.3 Hyperparathyroidism, unspecified; E66.9 Obesity, unspecified; Z68.28 Body mass index [BMI] 28.0-28.9, adult; F12.90 Cannabis use, unspecified, uncomplicated
CPT/HCPCS: 99213; G0463

== ENCOUNTER 2023-09-26 15:21 | Outpatient (CLI) | payer OTHER, SELFPAY ==
[2023-09-26 19:27] LABS: Cholesterol 259 mg/dL (0-200); HDL Direct 66 mg/dL; Triglycerides 155 mg/dL (<150)
[2023-09-26 19:38] LABS: LDL Cholesterol Direct 150 mg/dL
[2023-09-26 19:39] LABS: Free T4 Free Thyroxine 1.05 ng/mL (0.78-2.19)
[2023-09-30 09:28] LABS: Thyroid Peroxidase Antibodies <1 IU/mL (<9)
[2023-10-02 17:58] LABS: Thyroid Stimulating Immunoglob <89 % baseline (<140)
[2023-10-04 14:53] LABS: Thyrotropin Receptor Antibody 1.08 IU/L (< OR = 2.00)
== END 2023-09-26 15:22 | disposition home or self-care (01) ==
LOC: ANHGOSHLAB 15:22
PROVIDERS: PCP Nurse Practitioner; Visit Provider Internal Medicine
DX: E05.90 Thyrotoxicosis, unspecified without thyrotoxic crisis or storm (principal); Z13.220 Encounter for screening for lipoid disorders
CPT/HCPCS: 36415; 80061; 83519; 84439; 84443; 84445; 86376

== ENCOUNTER 2024-09-21 19:17 | Emergency (ER) | payer OTHER, SELFPAY ==
--- NOTE | 2024-09-21 19:21 | ED_ITS ---
HPI - Extremity Injury (Lower) General Chief Complaint: Extremity Injury, Lower Stated Complaint: Knee Pain Time Seen by Provider: 09/21/24 19:22 Source: patient Mode of arrival: ambulatory Limitations: no limitations History of Present Illness HPI Narrative: 48-year-old male presented for complaint of left knee pain, onset today. endorses posterior leg pain from low back to foot x2 days, but today pain is primarily behind the knee. Says he turned while cutting the grass and suddenly developed the pain. States he could not complete mowing the lawn due to the pain. rates 10/10, worse with standing and weight bearing, and with any movement. Denies fall or known injury, swelling bruising or redness. Related Data Allergies Allergy/AdvReac Type Severity Reaction Status Date / Time oseltamivir Allergy Severe Vomiting Verified 09/21/24 19:23 Penicillins Allergy Severe Anaphylaxis Verified 09/21/24 19:23 vancomycin Allergy Unknown Unknown Verified 09/21/24 19:23 Review of Systems Review of Systems: CONSTITUTIONAL: Denies body aches, fever, chills EYES: Denies visual changes ENT: Denies rhinorrhea, congestion CARDIOVASCULAR: Denies chest pain, palpitations, or edema. RESPIRATORY: Denies cough or dyspnea. SKIN: Denies rash, itching, or wounds. MUSCULOSKELETAL: reports left leg pain denies back pain, neck pain NEUROLOGIC: Denies numbness, tingling, or weakness. All systems reviewed & are unremarkable except as noted in HPI and below PMFSH Past Medical History Medical History (Updated 09/21/24 @ 19:40 by Nidia Gant, GANESH) Hyperthyroidism History of peptic ulcer disease Obesity IBS (irritable bowel syndrome) Abnormal weight loss RUQ abdominal pain Insomnia Depression with anxiety Hypertension Long-term current use of testosterone replacement therapy Family History Family History Father Family history of diabetes mellitus in first degree relative Diabetes mellitus Other Colon polyp Social History Social History Smoking status: Never smoker Alcohol intake: never Substance use: current Substance use type: marijuana Last use: HS Lack of Transportation: No Lack of Food: Never True Current Housing: I Do Not Have Housing Concerned About Future Housing: YES Difficulty Paying Gas/Electric Bills: YES Difficulty Paying for Meds: YES Currently Unemployed: No Education: High School Diploma/GED Difficulty w/ Childcare or Family Care: No Living arrangements: with family Gender identity (if verbalized by the patient): Male Spiritual care concerns: No Comments At time of signature, I have reviewed and agree with nursing past medical, surgical, social and family history unless otherwise noted. Please see nursing chart for further information. There is no relevant family history pertinent to the presenting complaint Exam Narrative: GENERAL: Appears in pain and in no acute distress. CHEST: Speaks in full sentences. No respiratory distress. HEART: Regular rate and rhythm. Normal and equal peripheral pulses. EXTREMITIES: Patient is able to bear weight but reports pain to left knee. No bruising, swelling, erythema or warmth noted. Patient is able to tolerate full flexion, extension, internal and external rotation but reports pain with any movement. Endorses tenderness with palpation medial and posterior to patella. No tenderness to palpation of the patella, no effusion or ballottement. No tenderness over the infrapatellar tendon, proximal fibular head, No quadriceps tenderness. Distal motor and neurovascular status intact. SKIN: Warm, dry, intact NEURO: Alert and oriented x3. PSYCH: Normal mood and affect Course Course Emergency Course: Patient is aware of diagnosis, understands and agrees to treatment plan. Anticipatory guidance given. Patient agrees to follow-up as directed and is aware of reasons to seek care at the emergency department. Portions of this record may have been created with voice recognition software Level of Care: Express Care Visit Vital Signs Vital signs: Reviewed MDM - Extremity Injury (Lower) MDM Narrative Medical decision making narrative: Discussed physical exam findings. Shared decision making, deferred xray at this time as pt has no specific injury. Pt provided crutch training and knee immobilizer. Will fu with ortho and pcp. Advised supportive measures and signs/symptoms to go to the ER. Pt is appropriate for outpt treatment and f/u. Differential Diagnosis Differential diagnosis: Likely other (osteoarthritis, patella dislocation, patellar tendonitis, tendon rupture, gout, bakers cyst, septic bursitis, dvt, tibial plateau fracture, ligament injury) Discharge Plan Discharge Clinical Impression: Acute pain of left knee Patient Disposition: Home Condition: Stable Instructions: Knee Pain (ED) Additional Instructions: Rest, use crutches and knee immobilizer as needed elevate the left leg; bear weight as tolerated Apply ice 15-20 minute intervals several times a day Keep it wrapped with ALEX or use a soft knee splint during the day Motrin alternate with Tylenol every 8 hours as needed Follow up with your primary care provider and administrative and program specialist. Call tomorrow to schedule appointments. Go to the ER for any worsening symptoms or concerns Patient Language: Amharic Prescriptions: No Action (DME) [employer] MDI Spacer Spacer See Rx Instructions .ROUTE .MEDSUPPLY Qty: 1 0RF Rx Instructions: As directed dicyclomine 20 mg tablet See Rx Instructions .ROUTE .COMPLEX Qty: 90 3RF Dose Instruction: TAKE 1 TABLET BY MOUTH EVERY 6 HOURS NEEDED Rx Instructions: TAKE 1 TABLET BY MOUTH EVERY 6 HOURS NEEDED omeprazole 40 mg capsule,delayed release(DR/EC) See Rx Instructions .ROUTE .COMPLEX Qty: 30 6RF Dose Instruction: Take 1 capsule by mouth once daily Rx Instructions: Take 1 capsule by mouth once daily amitriptyline 50 mg tablet See Rx Instructions .ROUTE .COMPLEX Qty: 90 0RF Dose Instruction: TAKE 1 TABLET BY MOUTH ONCE DAILY AT BEDTIME Rx Instructions: TAKE 1 TABLET BY MOUTH ONCE DAILY AT BEDTIME lisinopril 30 mg tablet 30 mg PO QPM Qty: 90 1RF citalopram 40 mg tablet 40 mg PO QPM Qty: 90 1RF metoprolol succinate 100 mg tablet extended release 24 hr 100 mg PO QPM Qty: 90 1RF Follow-up/Referrals: Aneudy Brand MD [Physician] - Naun Aguilera DO [Primary Care Provider] - Stand Alone Forms: Work/School Release IP Time of Disposition: 19:40
[2024-09-21 19:27] VITALS: BP 130/86; PULSE 79; RESP 16; TEMP 36.3; O2SAT 99
== END 2024-09-21 19:47 | disposition home or self-care (01) ==
PROVIDERS: Emergency Provider Nurse Practitioner Family; PCP Internal Medicine
DX: M25.562 Pain in left knee (principal); E05.90 Thyrotoxicosis, unspecified without thyrotoxic crisis or storm; I10 Essential (primary) hypertension; E66.9 Obesity, unspecified; Z68.36 Body mass index [BMI] 36.0-36.9, adult; F41.8 Other specified anxiety disorders
CPT/HCPCS: 99213; G0463; L1830

== ENCOUNTER 2024-09-22 16:44 | Emergency (ER) | payer OTHER, SELFPAY ==
--- NOTE | ~2024-09-22 | XR_ITS ---
EXAM: XR knee LT min 4V DATE: 09/22/2024 17:07 HISTORY: twisted knee yesterday . COMPARISON: 06/02/2008. FINDINGS: Normal mineralization. No fracture or dislocation. No lytic or blastic lesion. Mild tricom partmental left knee osteoarthritis. Small left knee joint effusion. Quadriceps and patellar enthesop athy. No erosion or periosteal change. Soft tissues within normal limits. IMPRESSION: No acute osseous finding in the left knee. Reviewed, dictated and finalized at location K.
--- OUTSIDE RECORDS SUMMARY | 2024-09-22 16:46 | XMS_ITS | Referral Summary ---
Author Organization [facility] Virtual Care Address [address] [place] [id number] Phone Care Team Providers Care Resistance Brazer Name Role Phone Naun Aguilera DO Primary Care Provider [phone] Encounters Date Type Department Care Team Description 07/28/2024 2:45 PM CDT Office Visit [facility] at [address] [id number] Simona Munoz NP Acute cough (Primary Dx) from Last 3 Months Allergies Active Allergy Reactions Criticality Noted Date Comments Penicillins Nausea & Vomiting Low 07/28/2024 Oseltamivir Vomiting Low 07/28/2024 Medications benzonatate (TESSALON) 200 mg capsuleIndicati ons:Acute cough Take 1 capsule (200 mg total) by mouth 3 (three) times a day as needed for cough 30 capsule 07/28/2024 Active Active Problems No known active problems Social History Tobacco Use Types Packs/Day Years Used Date Smoking Tobacco: Never Assessed Sex and Gender Information Value Date Recorded Sex Assigned at Not on file Legal Sex Male 6:21 PM CDT Gender Identity Not on file Sexual Orientation Not on file Last Filed Vital Signs Vital Sign Reading Time Taken Comments Blood Pressure 138/92 07/28/2024 2:52 PM CDT Pulse 78 07/28/2024 2:52 PM CDT Temperature 36.7 C (98 F) 07/28/2024 2:52 PM CDT Respiratory Rate 22 07/28/2024 2:52 PM CDT Oxygen Saturation 98% 07/28/2024 2:52 PM CDT Inhaled Oxygen Concentration - - Weight 114.6 kg (252 lb 11.2 oz) 07/28/2024 2:52 PM CDT Height - - Body Mass Index - - Plan of Treatment Not on file Insurance [facility] Care Teams Resistance Brazer Relationship Specialty Start Date End Date Naun Aguilera DO [address] [place] [address] [place] [id number] PCP - General Internal Medicine 07/28/24
--- OUTSIDE RECORDS SUMMARY | 2024-09-22 16:46 | XMS_ITS | Continuity of Care Document ---
Author Organization [facility] Address [address] [address] [facility] [address] [place] [address] Phone Care Team Providers Care Airport Shuttle Driver Name Role Phone Mishra OD, Roberth Unavailable Unavailable Procedures Procedure Date Office/outpatient Visit, Est Advance Directives Directive Yes / No Effective Date File Name No Information Encounters Encounter Description Practice Location Reason(s) For Visit Diagnoses Date Provider Providers Copied on Encounter Office/outpat ient Visit, Est [facility], [address] [place], [place], [id number], [place] tel:[phone] [facility] ([facility]) No Information 2-200 7 Mishra OD Roberth. [address] , [address], [place], [address], [place]. tel:[phone] Family History Family Member Type Diagnosis Age At Onset No Information Payers Payer name Insurance type Covered constitution party ID Authoriza tion(s) Medicaid [facility] [id number] Social History Type Description Quantity Date Captured Comments Sex Male Smoking Status No Information Chief Complaint And Reason For Visit No Information Reason For Referral Reason For Referral No Information History Of Present Illness Encounter Date Complaint History Of Prese nt Illness No Information Functional Status Date Functional Assessmen t No Information Instructions Date Instruction Additional Infor mation No Information Assessments Type Assessment Date No Information Patient Care Teams Name Effective Dates (start - stop) Status Members No Information
--- OUTSIDE RECORDS SUMMARY | 2024-09-22 16:46 | XMS_ITS | Continuity of Care Document ---
Author Organization [facility] Address [address] [facility] [place] [address] Phone Care Team Providers Care Mill Operator Head Name Role Phone Stephen Berger MD Unavailable Unavailable Allergies, Adverse Reactions, Alerts Substance Reaction Status Criticality penicillin G rash(moderate) Active No Informatio n Medications Medication Instructions Dosage Effective Dates (start - stop) Status Comments amitriptyline 50 mg tablet take 1 tablet (50MG) by oral route every day at bedtime 50 MG - Active Ambien 10 mg tablet take 1 tablet (10MG) by oral route every day at bedtime 10 MG - Active atenolol 100 mg tablet take 1 tablet (10 0MG) by oral route every day 100 MG - Active Celexa 40 mg tablet take 1 tablet (40MG) by oral route every day 40 MG - Active Procedures Procedure Date OFFICE/OUTPATIENT VISIT, EST OFFICE/OUTPATIENT VISIT, EST OFFICE/OUTPATIENT VISIT, EST PREV VISIT, NEW, AGE 18-39 Advance Directives Directive Yes / No Effective Date File Name No Information Encounters Encounter Description Practice Location Reason(s) For Visit Diagnoses Date Provider Providers Copied on Encounter [facility], [address], [place], [id number], tel:[phone] [facility] No Information 4 Ab Mitchell. [address], [place], [address] , [place]. tel:[phone] Referring Provider: Syed Burns [address], [place], [place], [address]. tel:[phone] OFFICE/OUTPA TIENT VISIT, [facility], [address], [place], [place], [address], [place] tel:[phone] [facility] headache (chief complaint) HTN (chief complaint) Insomnia (chief complaint) Dietary surveillance and counselingHypertens ion, UnspecifiedHeadache Insomnia, OtherMajor depressive affective disorder, single episode, mild degree Feb-2 6-201 4 Ab Mitchell. [address], [place], [place], [address] , [place]. tel:[phone] Referring Provider: Syed Burns [address], [place], [place], [address]. tel:[phone] OFFICE/OUTPA TIENT VISIT, [facility], [address], [place], [place], [address], [place] tel:[phone] [facility] headache (chief complaint) anxiety (chief complaint) HTN (chief complaint) Insomnia (chief complaint) Dietary surveillance and counselingInsomnia, OtherHeadacheMajor depressive affective disorder, single episode, mild degreeHypertension, Unspecified Dec-0 3-201 3 Ab Mitchell. [address], [place], [place], [address] , [place]. tel:[phone] Referring Provider: Syed Burns [address], [place], [place], [address]. tel:[phone] OFFICE/OUTPA TIENT VISIT, [facility], [address], [place], [place], [address], [place] tel:[phone] [facility] INsomnia (chief complaint) Headahe. (chief complaint) Dietary surveillance and counselingHeadacheI nsomnia, OtherMajor depressive affective disorder, single episode, mild degree Sep-2 7-201 3 Ab Mitchell. [address], [place], [place], [address] , [place]. tel:[phone] Referring Provider: Stephen Berger [address], [place], [place], [address]. tel:[phone] PREV VISIT, NEW, AGE 18-39 [facility], [address] [place], [place], [address], tel:[phone] [facility] Medicine Physical (chief complaint) Dietary surveillance and counselingRoutine Medical ExamRoutine Medical Exam 3 Ab Mitchell. [address], [place], [place], [address] , [place]. [phone] Family History Family Member Type Diagnosis Age At Onset Father Problem (finding) Diabetes mellitus Mother Problem (finding) Alive and well Brother Problem (finding) Alive and well Payers Payer name Insurance type Covered republican ID Authoriza tion(s) No Information Social History Type Description Quantity Date Captured Comments Sex Male Smoking Status No Information Chief Complaint And Reason For Visit No Information Plan Of Treatment Date Type Action Status No Information History Of Present Illness Encounter Date Complaint History Of Prese nt Illness No Information Instructions Date Instruction Additional Infor micky Decrease caloric intake Related to Dietary surveillance counseling Dietary counseling Related to Di etary surveillance counseling Decrease caloric intake Related to Dietary surveillance counseling Dietary counseling Related to Di etary surveillance counseling Decrease caloric intake Related to Dietary surveillance counseling Dietary counseling Related to Di etary surveillance counseling Decrease caloric intake Related to Dietary surveillance counseling Dietary counseling Related to Di etary surveillance counseling Assessments Type Assessment Date No Information
--- OUTSIDE RECORDS SUMMARY | 2024-09-22 16:46 | XMS_ITS | Clinical Summary ---
Author Organization [facility] Virtual Care Address [address] [place] [address] Phone Care Team Providers Care Print Line Tailer Name Role Phone Naun Aguilera DO Primary Care Provider [phone] Allergies Active Allergy Reactions Criticality Noted Date Comments Penicillins Nausea & Vomiting Low 07/28/2024 Oseltamivir Vomiting Low 07/28/2024 Medications benzonatate (TESSALON) 200 mg capsuleIndicati ons:Acute cough Take 1 capsule (200 mg total) by mouth 3 (three) times a day as needed for cough 30 capsule 07/28/2024 Active Active Problems No known active problems Encounters Date Type Department Care Team Description 07/28/2024 2:45 PM CDT Office Visit [facility] Medical Group [facility] Care at [address] [address] Simona Munoz NP Acute cough (Primary Dx) from Last 3 Months Social History Tobacco Use Types Packs/Day Years [...] Mass Index - - Plan of Treatment Health Maintenance Due Date Last Done Comments Colon Cancer Screening-Colonoscopy 1977 Depression Screening 1977 Hepatitis C Screening 1977 DTaP/Tdap/Td Vaccine (1 - Tdap) 1988 Hepatitis B Screening 11/29/1995 Regular Well Visit/Exam 18-64 11/29/1995 Covid-19 Vaccine (4 - 2023-2 5 season) 2023 03/10/2021, 10/01/2020, 09/08/2020 Influenza Vaccine (#1) 2024 10/13/2020 Pneumococcal vaccine <65 Aged Out 10/13/2020 No longer eligible based on patient's age to complete this topic HPV Vaccines Aged Out No longer eligi ble based on patient's age to complete this topic Insurance [facility] Care Teams Print Line Tailer Relationship Specialty Start Date End Date Naun Aguilera DO [facility] [address] [place] [address] [place] [id number] PCP - General Internal Medicine 07/28/24
--- NOTE | 2024-09-22 16:52 | ED_ITS ---
HPI - Extremity Injury (Lower) General Chief Complaint: Extremity Injury, Lower Stated Complaint: left knee pain Time Seen by Provider: 09/22/24 17:13 Focused HPI: 48-year-old male presents to the emergency department for left knee pain. Patient states yesterday was mowing the lawn and when he went to turn left he pivoted in his left knee gave out. He is reporting pain and swelling to his knee since. He went to urgent care yesterday in the abdomen Akin wrap and crutches. He did not have any imaging performed. He presents today for persistent pain. He has been taking naproxen and ibuprofen without improvement. GENERAL: Well-appearing, well-nourished, and in no acute distress. HEAD: Normocephalic, atraumatic. CHEST: Clear to auscultation. ?No respiratory distress. EXT: Mild effusion diffuse tenderness to the left knee. No obvious deformity. Full active and passive range of motion of the knee. No laxity with varus or valgus stress. Negative anterior and posterior drawer. DP pulses 2+. Sensation intact. No warmth or erythema. HEART: Regular rate and rhythm.? NEURO: ?Alert and oriented x3. Patient screened in triage and initial orders placed.? ?Additional care and disposition to be based upon?diagnostic testing and treatment. History of Present Illness HPI Narrative: Agree with the above triage note. Related Data Allergies Allergy/AdvReac Type Severity Reaction Status Date / Time oseltamivir Allergy Severe Vomiting Verified 09/22/24 17:19 Penicillins Allergy Severe Anaphylaxis Verified 09/22/24 17:19 vancomycin Allergy Unknown Unknown Verified 09/22/24 17:19 Review of Systems Review of Systems: All systems reviewed & are unremarkable except as noted in HPI and below PMFSH Past Medical History Medical History Hyperthyroidism History of peptic ulcer disease Obesity IBS (irritable bowel syndrome) Abnormal weight loss RUQ abdominal pain Insomnia Depression with anxiety Hypertension Long-term current use of testosterone replacement therapy Family History Family History Father Family history of diabetes mellitus in first degree relative Diabetes mellitus Other Colon polyp Social History Social History Smoking status: Never smoker Alcohol intake: never Substance use: current Substance use type: marijuana Last use: HS Lack of Transportation: No Lack of Food: Never True Current Housing: I Do Not Have Housing Concerned About Future Housing: YES Difficulty Paying Gas/Electric Bills: YES Difficulty Paying for Meds: YES Currently Unemployed: No Education: High School Diploma/GED Difficulty w/ Childcare or Family Care: No Living arrangements: with family Gender identity (if verbalized by the patient): Male Spiritual care concerns: No Exam Narrative: GENERAL: Well-appearing, well-nourished, and in no acute distress. HEAD: Normocephalic, atraumatic. CHEST: Clear to auscultation. ?No respiratory distress. EXT: Mild effusion diffuse tenderness to the left knee. No obvious deformity. Full active and passive range of motion of the knee. No laxity with varus or valgus stress. Negative anterior and posterior drawer. DP pulses 2+. Sensation intact. No warmth or erythema. HEART: Regular rate and rhythm.? NEURO: ?Alert and oriented x3. Course Vital Signs Vital signs: Vital Signs Temperature 97.8 F 09/22/24 16:55 Pulse Rate 82 09/22/24 16:55 Respiratory Rate 18 09/22/24 16:55 Blood Pressure 144/86 H 09/22/24 16:55 Pulse Oximetry 98 09/22/24 16:55 Oxygen Delivery Room Air 09/22/24 16:55 Temperature 97.8 F 09/22/24 16:55 Pulse Rate 82 09/22/24 16:55 Respiratory Rate 18 09/22/24 16:55 Blood Pressure 144/86 H 09/22/24 16:55 Pulse Oximetry 98 09/22/24 16:55 Oxygen Delivery Room Air 09/22/24 16:55 MDM - Extremity Injury (Lower) MDM Narrative Medical decision making narrative: 48-year-old male presents emergency department for left knee pain after twisting his knee while mowing the lawn yesterday. Vitals stable. Exam notable for the above. Pt is neurovascularly intact. Xrays show no acute osseous findings, small joint effusion. Pt updated on results. Pt placed in a knee immobilizer, advised to use crutches prn. Advised RICE, ibuprofen and Flexeril for pain and follow-up with orthopedist. Discussed strict ED return precautions. Patient is agreeable to plan and verbalized understanding. Discharged in stable condition. Discharge Plan Discharge Clinical Impression: Knee sprain Qualifiers: Encounter type: initial encounter Involved ligament of knee: unspecified ligament Laterality: left Qualified Code(s): S83.92XA - Sprain of unspecified site of left knee, initial encounter Patient Disposition: Home Condition: Stable Instructions: Antibiotic Form, Knee Sprain (DC), Knee Immobilizer (ED) Additional Instructions: Please rest, ice, elevate and keep your knee compressed. Take the medications as directed. Follow-up closely with the orthopedist. Return to the emergency department if you develop any new or worsening symptoms. Patient Language: Bangladeshi Prescriptions: New cyclobenzaprine 10 mg tablet 10 mg PO TID PRN (Reason: muscle spasm) Qty: 14 0RF ibuprofen 800 mg tablet 800 mg PO TID PRN (Reason: pain) Qty: 20 0RF No Action (DME) BreatheRite MDI Spacer Spacer See Rx Instructions .ROUTE .MEDSUPPLY Qty: 1 0RF Rx Instructions: As directed dicyclomine 20 mg tablet See Rx Instructions .ROUTE .COMPLEX Qty: 90 3RF Dose Instruction: TAKE 1 TABLET BY MOUTH EVERY 6 HOURS NEEDED Rx Instructions: TAKE 1 TABLET BY MOUTH EVERY 6 HOURS NEEDED omeprazole 40 mg capsule,delayed release(DR/EC) See Rx Instructions .ROUTE .COMPLEX Qty: 30 6RF Dose Instruction: Take 1 capsule by mouth once daily Rx Instructions: Take 1 capsule by mouth once daily amitriptyline 50 mg tablet See Rx Instructions .ROUTE .COMPLEX Qty: 90 0RF Dose Instruction: TAKE 1 TABLET BY MOUTH ONCE DAILY AT BEDTIME Rx Instructions: TAKE 1 TABLET BY MOUTH ONCE DAILY AT BEDTIME lisinopril 30 mg tablet 30 mg PO QPM Qty: 90 1RF citalopram 40 mg tablet 40 mg PO QPM Qty: 90 1RF metoprolol succinate 100 mg tablet extended release 24 hr 100 mg PO QPM Qty: 90 1RF Follow-up/Referrals: Mart Ni MD [Physician] - Naun Aguilera DO [Primary Care Provider] -
[2024-09-22 16:55] VITALS: BP 144/86; PULSE 82; RESP 18; TEMP 36.6; O2SAT 98
[2024-09-22] MEDS: CYCLOBENZAPRINE HCL 10 MG TABLET PO (17:18)
[2024-09-22] MEDS: IBUPROFEN 400 MG TABLET 800 MG PO (17:18)
--- OUTSIDE RECORDS SUMMARY | 2024-09-22 17:36 | XMS_ITS | Clinical Summary ---
Author Organization [facility] Virtual Care Address [address] [place] [address] Phone Care Team Providers Care Bar Captain Name Role Phone Naun Aguilera DO Primary Care Provider [phone] Allergies Active Allergy Reactions Criticality Noted Date [...] Description 07/28/2024 2:45 PM CDT Office Visit [facility] Medical Group [facility] at [address] [address] Simona Munoz NP Acute cough [...] patient's age to complete this topic Insurance [facility] Care Teams Bar Captain Relationship Specialty Start Date End Date Naun Aguilera DO [facility]7 [facility] [address] [place] [address] [place] [id number] PCP - General Internal Medicine 07/28/24
--- OUTSIDE RECORDS SUMMARY | 2024-09-22 17:36 | XMS_ITS | Referral Summary ---
Author Organization [facility] Virtual Care Address [address] [place] [address] Phone Care Team Providers Care Winter Intern Name Role Phone Naun Aguilera DO Primary Care Provider [phone] Encounters Date Type Department Care Team Description 07/28/2024 2:45 PM CDT Office Visit [facility] Medical [facility] Convenient Care at [address] [address] Simona Munoz NP Acute cough [...] Treatment Not on file Insurance [facility] Care Teams Winter Intern Relationship Specialty Start Date End Date Naun Aguilera DO [address] [facility] [address] [place] [address] [place] [address] PCP - General Internal Medicine 07/28/24
--- OUTSIDE RECORDS SUMMARY | 2024-09-22 17:36 | XMS_ITS | Continuity of Care Document ---
Author Organization [facility] Address [address] [place] [place] [address] Phone Care Team Providers Care Regulatory Attorney Name Role Phone Stephen Berger MD Unavailable Unavailable Allergies, Adverse Reactions, Alerts Substance Reaction Status Criticality penicillin G rash(moderate) Active No Informatio n Medications Medication Instructions Dosage Effective Dates (start - stop) Status Comments Ambien 10 mg tablet take 1 tablet (10MG) by oral route every day at bedtime 10 MG - Active amitriptyline 50 mg tablet take 1 tablet (50MG) by oral route every day at bedtime 50 MG - Active Celexa 40 mg tablet take 1 tablet (40MG) by oral route every day 40 MG - Active atenolol 100 mg tablet take 1 tablet (10 0MG) by oral route every day 100 MG - Active Procedures Procedure Date OFFICE/OUTPATIENT VISIT, EST OFFICE/OUTPATIENT VISIT, EST OFFICE/OUTPATIENT VISIT, EST PREV VISIT, NEW, AGE 18-39 Advance Directives Directive Yes / No Effective Date File Name No Information Encounters Encounter Description Practice Location Reason(s) For Visit Diagnoses Date Provider Providers Copied on Encounter [facility], [address], [id number], tel:[phone] [facility] No Information 4 Ab Mitchell. [address], [place], [address] , [place]. tel:[phone] Referring Provider: ySed [address], [place], [place], [address]. tel:[phone] OFFICE/OUTPA TIENT VISIT, [facility], [address], [place], [place], [address], [place] tel:[phone] [facility] headache (chief complaint) HTN (chief complaint) Insomnia (chief complaint) Dietary surveillance and counselingHypertens ion, UnspecifiedHeadache Insomnia, OtherMajor depressive affective disorder, single episode, mild degree Feb-2 6-201 4 Ab Mitchell. [address], [place], [place], [address] , [place]. tel:[phone] Referring Provider: Syed [address], [place], [place], [address]. tel:[phone] OFFICE/OUTPA TIENT VISIT, [facility], [address], [place], [place], [address], [place] tel:[phone] [facility] headache (chief complaint) anxiety (chief complaint) HTN (chief complaint) Insomnia (chief complaint) Dietary surveillance and counselingInsomnia, OtherHeadacheMajor depressive affective disorder, single episode, mild degreeHypertension, Unspecified Dec-0 3-201 3 Ab Mitchell. [address], [place], [place], [address] , [place]. tel:[phone] Referring Provider: Syed Burns [address], [place], [place], [address]. tel:[phone] OFFICE/OUTPA TIENT VISIT, [facility], [address], [place], [place], [address], [place] tel:[phone] [facility] INsomnia (chief complaint) Headahe. (chief complaint) Dietary surveillance and counselingHeadacheI nsomnia, OtherMajor depressive affective disorder, single episode, mild degree Sep-2 7-201 3 Ab Mitchell. [address], [place], [place], [address] , [place]. tel:[phone] Referring Provider: Stephen Berger [address], [place], [place], [address]. tel:[phone] PREV VISIT, NEW, AGE 18-39 [facility], [address] [place], [place], [address], tel:[phone] [facility] Medicine Physical (chief complaint) Dietary surveillance and counselingRoutine Medical ExamRoutine Medical Exam 3 Ab Mitchell. [address], [place], [place], [address] , [place]. [phone] Family History Family Member Type Diagnosis Age At Onset Father Problem (finding) Diabetes mellitus Mother Problem (finding) Alive and well Brother Problem (finding) Alive and well Payers Payer name Insurance type Covered alliance party ID Authoriza tion(s) No Information Social History Type Description Quantity Date Captured Comments Sex Male Smoking Status No Information Chief Complaint And Reason For Visit No Information Plan Of Treatment Date Type Action Status No Information History Of Present Illness Encounter Date Complaint History Of Prese nt Illness No Information Instructions Date Instruction Additional Infor micky Dietary counseling Related to Di etary surveillance [...] caloric intake Related to Dietary surveillance counseling Assessments Type Assessment Date No Information
--- OUTSIDE RECORDS SUMMARY | 2024-09-22 17:36 | XMS_ITS | Continuity of Care Document ---
Author Organization [facility] Address [address] [facility] [address] [facility] [address] [place] [address] Phone Care Team Providers Care Horse Show Manager Name Role Phone Mishra OD, Roberth Unavailable Unavailable Procedures Procedure Date Office/outpatient Visit, Est Advance Directives Directive Yes / No Effective Date File Name No Information Encounters Encounter Description Practice Location Reason(s) For Visit Diagnoses Date Provider Providers Copied on Encounter Office/outpat ient Visit, Est [facility], [address], [place], [place], [address], [place] tel:[phone] [facility] No Information 2-200 7 Mishra OD Rober[place]. [address], [place], [address], [place]. tel:[phone] Family History Family Member Type Diagnosis Age At Onset No Information Payers Payer name Insurance type Covered alliance party ID Authoriza tion(s) Medicaid [facility] [id number] Social History Type Description Quantity Date Captured [...]
== END 2024-09-22 17:45 | disposition home or self-care (01) ==
LOC: ANHED 17:34
PROVIDERS: Emergency Provider Physician Assistant; PCP Internal Medicine
DX: S83.92XA Sprain of unspecified site of left knee, initial encounter (principal); E05.90 Thyrotoxicosis, unspecified without thyrotoxic crisis or storm; F32.A Depression, unspecified; F41.9 Anxiety disorder, unspecified; I10 Essential (primary) hypertension; X50.0XXA Overexertion from strenuous movement or load, initial encounter
CPT/HCPCS: 73564; 99283; A9270

== ENCOUNTER 2024-10-14 14:58 | Outpatient (CLI) | payer OTHER, SELFPAY ==
--- OUTSIDE RECORDS SUMMARY | 2024-10-14 15:31 | XMS_ITS | Clinical Summary ---
Author Organization [facility] Virtual Care Address [address] [place] [address] Phone Care Team Providers Care Repossession Agent Name Role Phone Naun Aguilera DO Primary Care Provider [phone]- [phone] Allergies Active Allergy Reactions Criticality Noted Date [...] Description 07/28/2024 2:45 PM CDT Office Visit [facility] Care at [address] [address] Simona Munoz NP Acute cough [...] patient's age to complete this topic Insurance [facility] Care Teams Repossession Agent Relationship Specialty Start Date End Date Naun Aguilera DO [facility]7 [facility] [address] [place] [address] [place] [id number] PCP - General Internal Medicine 07/28/24
[2024-10-14 16:34] LABS: Hematocrit 48.4 % (42.0-52.0); Hemoglobin 16.4 g/dL (14.0-18.0); Immature Granulocyte Percent A 0.3 % (0-0.5); Lymphocytes Absolute Auto 2.09 K/mm3 (0.9-3.2); Mean Corpuscular HGB Conc 33.9 g/dl (32-36); Mean Corpuscular Hemoglobin 29.8 pg (26-34); Mean Corpuscular Volume 88.0 fl (80-100); Nucleated Red Blood Cells Absolute Auto 0.000 K/mm3 (0.0-0.012); Nucleated Red Blood Cells Perc 0.0 % (0.0-0.2); Platelet Count Result 260 k/mm3 (150-375); Red Blood Count 5.50 M/mm3 (4.6-6.20); White Blood Count 6.5 K/mm3 (4.5-10.0)
[2024-10-14 16:40] LABS: Alanine Aminotransferase 44 U/L (6-50); Albumin Level 4.5 g/dL (3.5-5.1); Alkaline Phosphatase 71 U/L (38-126); Anion Gap 8 mmol/L (4-12); Aspartate Amino Transferase 60 U/L (17-59); Bilirubin,Total 0.6 mg/dL (0.2-1.3); Blood Urea Nitrogen 14 mg/dL (9-20); Calcium 9.5 mg/dL (8.4-10.2); Carbon Dioxide 28 mmol/L (22-30); Chloride 101 mmol/L (98-107); Cholesterol 215 mg/dL (0-200); Estimated Glomerular Filt Rate > 60; Glucose 126 mg/dL (65-110); HDL Direct 65 mg/dL; Potassium 4.6 mmol/L (3.4-5.0); Sodium 137 mmol/L (137-145); Total Protein 8.4 g/dL (6.3-8.2); Triglycerides 115 mg/dL (<150)
[2024-10-14 17:16] LABS: Thyroid Stimulating Hormone 0.574 uIU/mL (0.465-4.680)
== END 2024-10-14 14:59 | disposition home or self-care (01) ==
LOC: ANHGOSHLAB 14:59
PROVIDERS: PCP Internal Medicine; Visit Provider Nurse Practitioner
DX: E05.90 Thyrotoxicosis, unspecified without thyrotoxic crisis or storm (principal); Z13.220 Encounter for screening for lipoid disorders; Z13.29 Encounter for screening for other suspected endocrine disorder
CPT/HCPCS: 36415; 80053; 80061; 84443; 85025

== ENCOUNTER 2024-12-19 13:33 | Outpatient (CLI) | payer OTHER, SELFPAY ==
--- NOTE | ~2024-12-19 | MR_ITS ---
EXAMINATION: MR knee LT wo con DATE: 12/19/2024 14:53 INDICATION: Left knee pain TECHNIQUE: Magnetic resonance imaging (MRI) of the left knee was performed without intravenous contrast. Sequences included coronal PD-weighted FSE, coronal PD-weighted FS FSE, sagittal T2-weighted FSE, sagittal PD-weighted FS FSE and axial PD weighted fat saturated FSE. COMPARISON: None. FINDINGS: Medial compartment: Mild medial extrusion of the medial meniscal body with full-thickness radial tear/avulsion near the posterior root. There is deep chondral ulceration in places appearing full/near full-thickness involving the medial two thirds of the anterior to central weightbearing medial femoral condyle and along the central, medial and anteromedial aspect lateral tibial plateau. Lateral compartment: Lateral meniscus is normal. Partial thickness chondral ulceration and deep fissuring at the central aspect of the lateral tibial plateau. Partial thickness chondral ulceration along the lateral third of the anterior weightbearing lateral femoral condyle. There is deep chondral fissuring at the central aspect of the anterior weightbearing lateral femoral condyle with small central subchondral osteophyte along the shoulder the intercondylar eminence. Patellofemoral compartment: Partial-thickness chondral ulceration with deeper fissuring at the patellar apical ridge. Deep or chondral ulceration with small central subchondral osteophytes at the trochlear groove and lateral half the medial trochlea and without degenerative subchondral osteophytes at the medial half of the lateral trochlea. Ligaments and tendons: Anterior and posterior cruciate ligaments are normal. The medial collateral ligament and fibular collateral ligament complex are normal. Patellar tendon is normal. Mild. The quadriceps tendinopathy without tear and and with moderate- sized enthesophyte at its patellar insertion. The visualized medial and lateral hamstring tendons as well as the iliotibial band are normal. Fluid: Moderate-sized left knee joint effusion. Moderate synovitis within a large Omalley's cyst measuring 7.5 similar craniocaudally and 3.1 x 2.1 cm in maximal transaxial dimensions. No loose osteochondral bodies identified. Osseous/other: There is prominent marrow edema surrounding a linear low signal intensity subarticular fracture line along the medial rim of the medial tibial plateau. Subtle discontinuity seen along the articular cortex proximal 8 mm lateral from the rim with slight downward sloping of the medial rim of the medial temporal plateau which is new since the prior radiographs. Additional prominent subarticular edema-like signal change without fracture underlying the articular cortex along the medial margin of the anterior weightbearing lateral femoral condyle overlying the intercondylar eminence which could similarly be due to bone contusion or stress reaction resulting from altered weight distribution. No pathologic marrow replacing process. IMPRESSION: 1. Full-thickness radial tear/avulsion at or near the posterior root of the medial meniscus. 2. Small fracture underlying the articular cortex at the medial rim of the medial tibial plateau with downward sloping of the articular cortex which could be related to the injury resulting in a meniscal tear with secondary or stress fracture resulting from altered weight distribution resulting from the meniscal tear. 3. Prominent marrow edema without discrete fracture underlying the medial cortex of the anterior weightbearing lateral femoral condyle which could similarly be due to discrete bone contusion or ongoing stress reaction resulting from altered weight distribution. 4. 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 5. Moderate-sized left knee joint effusion and large Omalley's cyst. Reviewed, dictated and finalized at location A. IMPRESSION: 1. Full-thickness radial tear/avulsion at or near the posterior root of the med ial meniscus. 2. Small fracture underlying the articular cortex at the medial rim of the medi al tibial plateau with downward sloping of the articular cortex which could be related to the injury resulting in a meniscal tear with secondary or stress fra cture resulting from altered weight distribution resulting from the meniscal te ar. 3. Prominent marrow edema without discrete fracture underlying the medial ezequiel x of the anterior weightbearing lateral femoral condyle which could similarly b e due to discrete bone contusion or ongoing stress reaction resulting from alte red weight distribution. 4. Tricompartmental osteoarthritis, moderate severity with high-grade chondroma lacia along the medial tibial plateau and medial femoral condyle and mild with moderate and high-grade chondromalacia in the lateral and patellofemoral compar tments. 5. Moderate-sized left knee joint effusion and large Omalley's cyst.
== END 2024-12-19 13:34 | disposition home or self-care (01) ==
PROVIDERS: PCP Internal Medicine; Visit Provider Nurse Practitioner Family
DX: S83.242A Other tear of medial meniscus, current injury, left knee, initial encounter (principal); M17.12 Unilateral primary osteoarthritis, left knee; M25.462 Effusion, left knee; M71.22 Synovial cyst of popliteal space [Baker], left knee; S82.135A Nondisplaced fracture of medial condyle of left tibia, initial encounter for closed fracture; G89.29 Other chronic pain; M85.88 Other specified disorders of bone density and structure, other site; X58.XXXA Exposure to other specified factors, initial encounter
CPT/HCPCS: 73721